=== PATIENT | female | born 1975 | race Asian ===

== ENCOUNTER 2016-03-16 19:22 | Emergency (ER) | payer OTHER ==
[2016-03-16 19:42] VITALS: BP 122/84; PULSE 103; RESP 18; TEMP 98.4; O2SAT 95
[2016-03-16] MEDS ORDERED: IBUPROFEN 800 MG TAB PO ONE (20:23)
[2016-03-16] MEDS ORDERED: ACETAMINOPHEN 500 MG TAB PO ONE (20:23)
--- NOTE | 2016-03-16 20:27 | UCPHY ---
H & P Patient Type: Established Chief Complaint Nursing Narrative: dry cough for 3 weeks, bodyaches, headache Time Seen by Provider: 03/16/16 20:17 HPI/ROS: CHIEF COMPLAINT: Cough, shortness of breath HISTORY OF PRESENT ILLNESS: The patient is a 40-year-old female who comes to the Urgent Care complaining of a cough mild shortness of breath. She states that she has had the symptoms for 3 weeks. She has had chills but no fever. She did get a flu shot this year. Mild sore throat but states that does not bother her that much. Mild runny nose. Mild ear pressure, no headache, neck pain, no chest pain. REVIEW OF SYSTEMS: Constitutional: See HPI EENTM: See HPI Respiratory: denies: cough, shortness of breath Cardiac: denies: chest pain, irregular heart rate, lightheadedness, palpitations Gastrointestinal/Abdominal: denies: abdominal pain, diarrhea, nausea, vomiting, blood streaked stools Genitourinary: denies: dysuria, frequency, hematuria, pain Musculoskeletal: denies: joint pain, muscle pain Skin: denies: lesions, rash, jaundice, bruising Neurological: denies: headache, numbness, paresthesia, tingling, dizziness, weakness Hematologic/Lymphatic: denies: blood clots, easy bleeding, easy bruising Immunologic/allergic: denies: HIV/AIDS, transplant EXAM: GENERAL: Well-appearing, well-nourished and in no acute distress. HEAD: Atraumatic, normocephalic. EYES: Pupils equal round and reactive to light, extraocular movements intact, sclera anicteric, conjunctiva are normal. ENT: Fluid behind tympanic membranes, no erythema, sinus congestion, dry cough NECK: Normal range of motion, supple without lymphadenopathy or JVD. LUNGS: Breath sounds clear to auscultation bilaterally and equal. No wheezes rales or rhonchi. HEART: Regular rate and rhythm without murmurs, rubs or gallops. ABDOMEN: Soft, nontender, normoactive bowel sounds. No guarding, no rebound. No masses appreciated. BACK: No CVA tenderness, no spinal tenderness, step-offs or deformities EXTREMITIES: Normal range of motion, no pitting or edema. No clubbing or cyanosis. NEUROLOGICAL: Cranial nerves II through XII grossly intact. Normal speech, normal gait. 5/5 strength, normal movement in all extremities, normal sensation PSYCH: Normal mood, normal affect. SKIN: Warm, dry, normal turgor, no visible rashes or lesions. Source: Patient Exam Limitations: No limitations - Personal History LMP (Females 10-55): 8-14 Days Ago Current Tetanus Diphtheria and Acellular Pertussis (TDAP): Unsure - Medical/Surgical History Hx Asthma: No Hx Chronic Respiratory Disease: No Hx Diabetes: No Hx Cardiac Disease: No Hx Renal Disease: No Hx Cirrhosis: No Hx Alcoholism: No Hx HIV/AIDS: No Hx Splenectomy or Spleen Trauma: No Other PMH: Cervical fusion, bronchitis, pneumonia - Family History Significant Family History: Hypertension - Social History Smoking Status: Never smoked Alcohol Use: Sober Drug Use: None Constitutional: Initial Vital Signs Temperature (C) 36.9 C 03/16/16 19:38 Heart Rate 103 H 03/16/16 19:38 Respiratory Rate 18 03/16/16 19:38 Blood Pressure 122/84 H 03/16/16 19:38 O2 Sat (%) 95 03/16/16 19:38 O2 Delivery Mode Room Air Allergies/Adverse Reactions: aspirin [Aspirin] Allergy (Severe, Verified 03/16/16 19:38) Anaphylaxis Home Medications: Medication Instructions Recorded AZITHROMYCIN [Z-PACK] 250 mg PO DAILY #4 tab 03/16/16 Promethazine HCl/Codeine 5 ml PO Q4-6PRN PRN #90 ml 03/16/16 [Prometh-Codein 6.25-10 mg/5 ml] Medical Decision Making - Diagnostics Imaging: X-ray: chest x-ray was obtained. I viewed the images myself on the PACS system. My interpretation of the images is: Bronchitis. The radiologist interpretation is pending. ED Course/Re-evaluation: The patient's flu swab is negative. Her x-ray is consistent with bronchitis. She has had the symptoms for several weeks. I will start her on azithromycin. She is agreeable to this plan. She declines further workup or testing. She declines inhalers. I will give her cough syrup to use as needed. Warned her that is not I wonder drug. She understands this plan. Additional verbal Discharge instructions given Differential Diagnosis: Partial list of the Differential diagnosis considered include but were not limited to; bronchitis, influenza, strep throat, upper respiratory tract infection and although unlikely based on the history and physical exam, I also considered pneumonia, PE, acute coronary disease. I discussed these differential diagnoses and the plan with the patient as well as the usual and expected course. The patient understands that the diagnosis is provisional and that in medicine we are not always correct and that further workup is often warranted. Usual and customary warnings were given. All of the patient's questions were answered. The patient was instructed to return to the emergency department should the symptoms at all worsen or return, otherwise to followup with the physician as we discussed. - Data Points Laboratory Results: 03/16/16 20:25 Influenza Typ A,B (DFA) NEGATIVE FOR FLU (NEGATIVE) Medications Given: Discontinued Medications Acetaminophen (Tylenol) 1,000 mg PO EDNOW ONE Stop: 03/16/16 20:24 Last Admin: 03/16/16 21:20 Dose: 1,000 mg Azithromycin (Zithromax) 500 mg PO EDNOW ONE PRN Reason: Protocol Stop: 03/16/16 20:52 Last Admin: 03/16/16 21:20 Dose: 500 mg Ibuprofen (Motrin) 800 mg PO EDNOW ONE Stop: 03/16/16 20:24 Last Admin: 03/16/16 21:20 Dose: 800 mg Departure - Departure Disposition: Home, Routine, Self-Care Clinical Impression: Bronchitis Condition: Fair Instructions: Acute Bronchitis (ED) Referrals: [place] STATE,. [Primary Care Provider] - As per Instructions Lucas Portillo, [Medical Doctor] - As per Instructions Prescriptions: Promethazine HCl/Codeine [Prometh-Codein 6.25-10 mg/5 ml] 5 ml PO Q4-6PRN PRN # 90 ml PRN Reason: Cough, Moderate AZITHROMYCIN [Z-PACK] 250 mg PO DAILY #4 tab - PQRS PQRS Measurement: Not applicable
[2016-03-16] MEDS ORDERED: AZITHROMYCIN 250 MG TAB PO ONE (20:51)
[2016-03-16] MEDS ORDERED: IBUPROFEN 600 MG TAB PO ONE (21:21)
--- NOTE | 2016-03-17 17:15 | DX ---
PA and Lateral Chest Clinical Indications: Cough for 3 weeks. Findings: Compare 2013, 2010. The lungs are clear, and no masses are found. Bronchial markings appe ar thickened, bilaterally, suggesting possible bronchitis. Lungs are not hyperinflated. The heart and pulmonary vessels are normal. There are no pleural effusions and no pneumothorax. Locking plate an d opaque markers of fusion grafts are noted in the cervical spine. Impression: Negative for pneumonia.
== END 2016-03-16 21:29 | disposition home or self-care (01) ==
LOC: CED 19:22
DX: J40 Bronchitis, not specified as acute or chronic (principal); R51 Headache
CPT/HCPCS: 71020-PO; 87400-PO; 99214-PO; G0463-PO

== ENCOUNTER 2016-05-05 15:34 | Emergency (ER) | payer OTHER ==
[2016-05-05 15:42] VITALS: BP 139/77; PULSE 101; RESP 16; TEMP 98.1; O2SAT 100
[2016-05-05] MEDS ORDERED: DEXAMETHASONE VARIABLE DOSE IVP/PO ONE (16:04)
--- NOTE | 2016-05-05 16:07 | UCPHY ---
H & P Patient Type: Established Chief Complaint Nursing Narrative: C/o sore throat and nonproductive cough x 1 week. Denies fever. Time Seen by Provider: 05/05/16 15:56 HPI/ROS: CHIEF COMPLAINT: Sore throat HISTORY OF PRESENT ILLNESS: The patient is a 40-year-old female who comes to the Urgent Care complaining of a sore throat for the last week. She has not had a fever. She has had mild sinus congestion and dry cough. No shortness of breath, no chest pain, no GI symptoms, no symptoms she classifies her symptoms as moderate and negative. I saw her about a month ago for bronchitis and she successfully recovered with azithromycin. REVIEW OF SYSTEMS: Constitutional: denies: chills, fever, recent illness, recent injury EENTM: See HPI Respiratory: denies: cough, shortness of breath Cardiac: denies: chest pain, irregular heart rate, lightheadedness, palpitations Gastrointestinal/Abdominal: denies: abdominal pain, diarrhea, nausea, vomiting, blood streaked stools Genitourinary: denies: dysuria, frequency, hematuria, pain Musculoskeletal: denies: joint pain, muscle pain Skin: denies: lesions, rash, jaundice, bruising Neurological: denies: headache, numbness, paresthesia, tingling, dizziness, weakness Hematologic/Lymphatic: denies: blood clots, easy bleeding, easy bruising Immunologic/allergic: denies: HIV/AIDS, transplant EXAM: GENERAL: Well-appearing, well-nourished and in no acute distress. HEAD: Atraumatic, normocephalic. EYES: Pupils equal round and reactive to light, extraocular movements intact, sclera anicteric, conjunctiva are normal. ENT: TMs normal, nares patent, oropharynx erythematous without exudates. Moist mucous membranes. NECK: Normal range of motion, supple without lymphadenopathy or JVD. LUNGS: Breath sounds clear to auscultation bilaterally and equal. No wheezes rales or rhonchi. HEART: Regular rate and rhythm without murmurs, rubs or gallops. ABDOMEN: Soft, nontender, normoactive bowel sounds. No guarding, no rebound. No masses appreciated. BACK: No CVA tenderness, no spinal tenderness, step-offs or deformities EXTREMITIES: Normal range of motion, no pitting or edema. No clubbing or cyanosis. NEUROLOGICAL: Cranial nerves II through XII grossly intact. Normal speech, normal gait. 5/5 strength, normal movement in all extremities, normal sensation PSYCH: Normal mood, normal affect. SKIN: Warm, dry, normal turgor, no visible rashes or lesions. Source: Patient Exam Limitations: No limitations - Personal History LMP (Females 10-55): 15-21 Days Ago Current Tetanus/Diphtheria Vaccine: Unsure Current Tetanus Diphtheria and Acellular Pertussis (TDAP): Unsure - Medical/Surgical History Hx Asthma: No Hx Chronic Respiratory Disease: No Hx Diabetes: No Hx Cardiac Disease: No Hx Renal Disease: No Hx Cirrhosis: No Hx Alcoholism: No Hx HIV/AIDS: No Hx Splenectomy or Spleen Trauma: No Other PMH: Cervical fusion, bronchitis, pneumonia - Family History Significant Family History: No pertinent family hx - Social History Smoking Status: Never smoked Alcohol Use: None Drug Use: None Constitutional: Initial Vital Signs Temperature (C) 36.7 C 05/05/16 15:40 Heart Rate 101 H 05/05/16 15:40 Respiratory Rate 16 05/05/16 15:40 Blood Pressure 139/77 H 05/05/16 15:40 O2 Sat (%) 100 05/05/16 15:40 O2 Delivery Mode Room Air Allergies/Adverse Reactions: aspirin [Aspirin] Allergy (Severe, Verified 05/05/16 15:42) Anaphylaxis Home Medications: Medication Instructions Recorded NK [No Known Home Meds] 05/05/16 Medical Decision Making ED Course/Re-evaluation: Patient's rapid strep is negative. I will treat with a dose of Decadron. We discussed the possibility of different PCR interpretation. She is not ill appearing and afebrile. I will not initiate antibiotics at this time. Differential Diagnosis: Partial list of the Differential diagnosis considered include but were not limited to; pharyngitis, upper respiratory tract infection, bronchitis, and although unlikely based on the history and physical exam, I also considered pneumonia, otitis media, meningitis. I discussed these differential diagnoses and the plan with the patient as well as the usual and expected course. The patient understands that the diagnosis is provisional and that in medicine we are not always correct and that further workup is often warranted. Usual and customary warnings were given. All of the patient's questions were answered. The patient was instructed to return to the emergency department should the symptoms at all worsen or return, otherwise to followup with the physician as we discussed. - Data Points Laboratory Results: 05/05/16 05/05/16 Unknown 15:45 Group A Strep Screen NEGATIVE (NEGATIVE) Group A Strep DNA Pending Medications Given: Discontinued Medications Dexamethasone Sodium Phosphate (Decadron) 10 mg IVP/PO EDNOW ONE Stop: 05/05/16 16:05 Last Admin: 05/05/16 16:14 Dose: 10 mg Departure - Departure Disposition: Home, Routine, Self-Care Clinical Impression: Pharyngitis Qualifiers: Pharyngitis/tonsillitis etiology: unspecified etiology Qualified Code(s): J02.9 - Acute pharyngitis, unspecified Condition: Fair Instructions: Pharyngitis (ED) Referrals: Serafin Rodriguez MD [Medical Doctor] - As per Instructions - PQRS PQRS Measurement: Not applicable
[2016-05-05] MEDS ORDERED: DEXAMETHASONE 10 MG/ML VIAL ONE (16:11)
== END 2016-05-05 16:17 | disposition home or self-care (01) ==
LOC: CED 15:34
DX: J02.9 Acute pharyngitis, unspecified (principal); R05 Cough; Z98.1 Arthrodesis status
CPT/HCPCS: 87880-PO; G0463-PO

== ENCOUNTER 2016-05-23 15:22 | Inpatient (IN) | payer OTHER ==
[2016-05-23] MEDS ORDERED: NS 1,000 ML IV ONE ×4 (15:48→20:23)
[2016-05-23] MEDS ORDERED: ACETAMINOPHEN 325 MG TAB PO ONE (15:48)
--- NOTE | 2016-05-23 15:49 | UCPHY ---
H & P Patient Type: Established HPI/ROS: HPI CHIEF COMPLAINT: Fever, tachycardia, hypotension, cough, generalized illness, muscle aches, headache HISTORY OF PRESENT ILLNESS: This patient 40-year-old female significant past medical history for hyperlipidemia, pre diabetes, cervical fusion, presents to urgent care by private vehicle with not feeling well. She states that for the past 24 hours she has had a cough nonproductive, fever, fast heart rate, muscle aches, headache, generalized weakness, nausea. No vomiting no diarrhea no chest pain. She does endorse a cough. It is noted upon arrival to the urgent care heart rate is 160 her blood pressures 90s, she is febrile to 103. She appears to be septic. and friend at bedside. Past Medical History: Hyperlipidemia, pre-diabetes, pneumonia, recurrent bronchitis. Past Surgical History: Cervical fusion Social History: Denies use of drugs alcohol tobacco products Family History: noncontributory ROS REVIEW OF SYSTEMS: A comprehensive 10 point review of systems is otherwise negative aside from elements mentioned in the history of present illness. Exam Constitutional appears ill, triage nursing summary reviewed, vital signs reviewed, awake/alert. Vital signs noted: Tachycardia, blood pressure 90s, febrile to 103 Eyes normal conjunctivae and sclera, EOMI, PERRLA. HENT normal inspection, atraumatic, moist mucus membranes, no epistaxis, neck supple/ no meningismus, no raccoon eyes. Respiratory clear to auscultation bilaterally, normal breath sounds, no respiratory distress, no wheezing. Cardiovascular tachycardia, regular,no murmur, no edema, distal pulses normal. Gastrointestinal soft, non-tender, no rebound, no guarding, normal bowel sounds, no distension, no pulsatile mass. Genitourinary no CVA tenderness. Musculoskeletal no midline vertebral tenderness, full range of motion, no calf swelling, no tenderness of extremities, no meningismus, good pulses, neurovascularly intact. Skin pink, warm, & dry, no rash, skin atraumatic. Neurologic awake, alert and oriented x 3, AAOx3, moves all 4 extremities equally, motor intact, sensory intact, CN II-XII intact, normal cerebellar, normal vision, normal speech. Psychiatric normal mood/affect. Heme/Lymph/Immune no lymphadenopathy. Differential Diagnosis: Includes but is not limited to in a particular order, sepsis, severe sepsis, bacteremia, septic shock, pneumonia, dehydration, influenza, meningitis Medical Decision Making: Plan for this patient should be resuscitated aggressively, she had 2 large-bore IVs established receive IV fluid bolus 2 L up front, blood cultures, lactic acid, strep, bacterial pneumonia, patient had a chest x-ray, blood work, lactic acid, coags urinalysis.Tachycardic to the 160 she will need EKG. Re-evaluation: Critical Care: Total Critical Care Time Spent Managing this Patient: 60 Minutes. This time was spent Exclusively with this patient. This Care was exclusive of procedures. The Organ System/life at risk was hemodynamically, sepsis, tachycardia, fever to 103 This Patient was in Critical Condition because bacteremia, sepsis, tachycardia , fever to 103 dehydration, EKG interpretation by me on record in [employer] system. Impression time of EKG 1625, this is sinus tachycardia rate of 145. CT scan of the head without IV contrast The results of the study are negative for acute intracranial abnormality The study was read by Dr. Musa I viewed the images myself on the PACS system. CT scan of the chest without IV contrast The results of the study are right upper lobe pneumonia is also right lower lobe pulmonary calcifications that will need follow-up The study was read by Dr. Musa I viewed the images myself on the PACS system. Final diagnosis severe sepsis, sepsis with tachycardia, high fever, dehydration , right upper lobe pneumonia 1821: spoke with the hospitalist service Dr. Mehta who agrees to admit this patient. At this time this patient is hemodynamically stable, fever has resolved heart rate is coming down, CT scan shows pneumonia. IV Rocephin IV azithromycin has been ordered for this. Lactic acid is not elevated. She has received 4 L of fluid, blood cultures, trending lactates. She is agreeable for transfer and admission to the hospital. Source: Patient - Medical/Surgical History Hx Asthma: No Hx Chronic Respiratory Disease: No Hx Diabetes: No Hx Cardiac Disease: No Hx Renal Disease: No Hx Cirrhosis: No Hx Alcoholism: No Hx HIV/AIDS: No Hx Splenectomy or Spleen Trauma: No Other PMH: Cervical fusion, bronchitis, pneumonia - Family History Significant Family History: No pertinent family hx - Social History Smoking Status: Never smoked Constitutional: Initial Vital Signs Temperature (C) 39.9 C H 05/23/16 15:49 Heart Rate 151 H 05/23/16 15:49 Respiratory Rate 22 H 05/23/16 15:49 Blood Pressure 103/59 L 05/23/16 15:49 O2 Sat (%) 92 05/23/16 15:49 O2 Delivery Mode Room Air Allergies/Adverse Reactions: aspirin [Aspirin] Allergy (Severe, Verified 05/05/16 15:42) Anaphylaxis Home Medications: Medication Instructions Recorded NK [No Known Home Meds] 05/05/16 Medical Decision Making - Data Points Laboratory Results: Laboratory Results 05/23/16 16:11 05/23/16 16:11 05/23/16 05/23/16 05/23/16 Unknown 16:11 16:11 WBC RBC Hgb Hct MCV MCH MCHC RDW Plt Count MPV Neut % (Auto) Lymph % (Auto) [place] % (Auto) Eos % (Auto) Baso % (Auto) Nucleat RBC Rel Count Absolute Neuts (auto) Absolute Lymphs (auto) Absolute Monos (auto) Absolute Eos (auto) Absolute Basos (auto) Absolute Nucleated RBC Immature Gran % Immature Gran # PT INR APTT VBG Lactic Acid 2.1 mmol/L mmol/L (0.7-2.1) Sodium Potassium Chloride Carbon Dioxide Anion Gap BUN Creatinine Estimated GFR Glucose Calcium Total Bilirubin Troponin I < 0.012 ng/mL ng/mL (0-0.034) Urine Color Urine Appearance Urine pH Ur Specific [place] Urine Protein Urine Ketones Urine Blood Urine Nitrate Urine Bilirubin Urine Urobilinogen Ur Leukocyte Esterase Urine RBC Urine WBC Ur Epithelial Cells Urine Bacteria Urine Mucus Urine Glucose Urine Test Influenza Typ A,B (DFA) Group A Strep Screen Group A Strep DNA Pending 05/23/16 05/23/16 05/23/16 16:11 16:11 16:11 WBC RBC Hgb Hct MCV MCH MCHC RDW Plt Count MPV Neut % (Auto) Lymph % (Auto) [place] % (Auto) Eos % (Auto) Baso % (Auto) Nucleat RBC Rel Count Absolute Neuts (auto) Absolute Lymphs (auto) Absolute Monos (auto) Absolute Eos (auto) Absolute Basos (auto) Absolute Nucleated RBC Immature Gran % Immature Gran # PT INR APTT VBG Lactic Acid Sodium Potassium Chloride Carbon Dioxide Anion Gap BUN Creatinine Estimated GFR Glucose Calcium Total Bilirubin Troponin I Urine Color YELLOW Urine Appearance HAZY Urine pH 8.0 H (5.0-7.5) Ur Specific [place] 1.020 (1.002-1.030) Urine Protein NEGATIVE (NEGATIVE) Urine Ketones NEGATIVE (NEGATIVE) Urine Blood 1+ H (NEGATIVE) Urine Nitrate NEGATIVE (NEGATIVE) Urine Bilirubin NEGATIVE (NEGATIVE) Urine Urobilinogen 0.2 EU EU (0.2-1.0) Ur Leukocyte Esterase NEGATIVE (NEGATIVE) Urine RBC 1-3 /hpf /hpf (0-3) Urine WBC 0-1 /hpf /hpf (0-3) Ur Epithelial Cells 2+ /lpf H /lpf (NONE-1+) Urine Bacteria TRACE /hpf H /hpf (NONE SEEN) Urine Mucus 2+ /lpf H /lpf (NONE-1+) Urine Glucose NEGATIVE (NEGATIVE) Urine Test Influenza Typ A,B (DFA) NEGATIVE FOR FLU (NEGATIVE) Group A Strep Screen NEGATIVE (NEGATIVE) Group A Strep DNA 05/23/16 05/23/16 05/23/16 16:11 16:11 16:11 WBC 7.91 10^3/uL 10^3/uL (3.80-9.50) RBC 4.93 10^6/uL 10^6/uL (4.18-5.33) Hgb 13.5 g/dL g/dL (12.6-16.3) Hct 40.3 % % (38.0-47.0) MCV 81.7 fL fL (81.5-99.8) MCH 27.4 pg L pg (27.9-34.1) MCHC 33.5 g/dL g/dL (32.4-36.7) RDW 13.1 % % (11.5-15.2) Plt Count 162 10^3/uL 10^3/uL (150-400) MPV 10.7 fL fL (8.7-11.7) Neut % (Auto) 85.0 % H % (39.3-74.2) Lymph % (Auto) 5.7 % L % (15.0-45.0) [place] % (Auto) 7.7 % % (4.5-13.0) Eos % (Auto) 0.6 % % (0.6-7.6) Baso % (Auto) 0.1 % L % (0.3-1.7) Nucleat RBC Rel Count 0.0 % % (0.0-0.2) Absolute Neuts (auto) 6.72 10^3/uL H 10^3/uL (1.70-6.50) Absolute Lymphs (auto) 0.45 10^3/uL L 10^3/uL (1.00-3.00) Absolute Monos (auto) 0.61 10^3/uL 10^3/uL (0.30-0.80) Absolute Eos (auto) 0.05 10^3/uL 10^3/uL (0.03-0.40) Absolute Basos (auto) 0.01 10^3/uL L 10^3/uL (0.02-0.10) Absolute Nucleated RBC 0.00 10^3/uL 10^3/uL (0-0.01) Immature Gran % 0.9 % % (0.0-1.1) Immature Gran # 0.07 10^3/uL 10^3/uL (0.00-0.10) PT 13.4 SEC SEC (12.0-15.0) INR 1.05 (0.83-1.16) APTT 26.9 SEC SEC (23.0-38.0) VBG Lactic Acid Sodium 136 mEq/L mEq/L (134-144) Potassium 3.6 mEq/L mEq/L (3.5-5.2) Chloride 106 mEq/L mEq/L (97-110) Carbon Dioxide 18 mEq/l L mEq/l (22-31) Anion Gap 12 mEq/L mEq/L (8-16) BUN 11 mg/dL mg/dL (7-23) Creatinine 0.6 mg/dL mg/dL (0.6-1.0) Estimated GFR > 60 Glucose 169 mg/dL H mg/dL (70-100) Calcium 8.4 mg/dL L mg/dL (8.5-10.4) Total Bilirubin 0.6 mg/dL mg/dL (0.1-1.4) Troponin I Urine Color Urine Appearance Urine pH Ur Specific [place] Urine Protein Urine Ketones Urine Blood Urine Nitrate Urine Bilirubin Urine Urobilinogen Ur Leukocyte Esterase Urine RBC Urine WBC Ur Epithelial Cells Urine Bacteria Urine Mucus Urine Glucose Urine Test Influenza Typ A,B (DFA) Group A Strep Screen Group A Strep DNA 05/23/16 05/23/16 16:11 15:53 WBC RBC Hgb Hct MCV MCH MCHC RDW Plt Count MPV Neut % (Auto) Lymph % (Auto) [place] % (Auto) Eos % (Auto) Baso % (Auto) Nucleat RBC Rel Count Absolute Neuts (auto) Absolute Lymphs (auto) Absolute Monos (auto) Absolute Eos (auto) Absolute Basos (auto) Absolute Nucleated RBC Immature Gran % Immature Gran # PT INR APTT VBG Lactic Acid Pending Sodium Potassium Chloride Carbon Dioxide Anion Gap BUN Creatinine Estimated GFR Glucose Calcium Total Bilirubin Troponin I Urine Color Urine Appearance Urine pH Ur Specific [place] Urine Protein Urine Ketones Urine Blood Urine Nitrate Urine Bilirubin Urine Urobilinogen Ur Leukocyte Esterase Urine RBC Urine WBC Ur Epithelial Cells Urine Bacteria Urine Mucus Urine Glucose Urine Test NEGATIVE Influenza Typ A,B (DFA) Group A Strep Screen Group A Strep DNA Medications Given: Discontinued Medications Acetaminophen (Tylenol) 1,000 mg PO EDNOW ONE Stop: 05/23/16 15:49 Last Admin: 05/23/16 15:59 Dose: 1,000 mg Sodium Chloride (Ns) 1,000 mls @ 0 mls/hr IV ONCE ONE PRN Reason: Wide Open Stop: 05/23/16 15:49 Last Admin: 05/23/16 16:21 Dose: 1,000 mls Sodium Chloride (Ns) 1,000 mls @ 0 mls/hr IV ONCE ONE PRN Reason: Wide Open Stop: 05/23/16 16:23 Last Admin: 05/23/16 16:26 Dose: 1,000 mls Ibuprofen (Motrin) 800 mg PO EDNOW ONE Stop: 05/23/16 15:56 Last Admin: 05/23/16 16:26 Dose: 800 mg Departure - Departure Disposition: [facility] Clinical Impression: Tachycardia Fever Qualifiers: Fever type: unspecified Qualified Code(s): R50.9 - Fever, unspecified Pneumonia Qualifiers: Pneumonia type: due to unspecified organism Laterality: right Lung location: upper lobe of lung Qualified Code(s): J18.1 - Lobar pneumonia, unspecified organism Condition: Critical Referrals: NONE *PRIMARY CARE P,. [Primary Care Provider] - As per Instructions - PQRS PQRS Measurement: n/a
[2016-05-23] MEDS ORDERED: IBUPROFEN 800 MG TAB PO ONE (15:55)
[2016-05-23] MEDS ORDERED: IBUPROFEN 200 MG TAB PO ONE (16:23)
[2016-05-23] MEDS ORDERED: IBUPROFEN 600 MG TAB PO ONE (16:23)
--- NOTE | 2016-05-23 16:27 | CPEKG ---
Heart Rate: 145 RR Interval: 414 P-R Interval: 128 QRSD Interval: 76 QT Interval: 276 QTC Interval: 429 P [place]: 58 QRS [place]: 55 T Wave [place]: -59 EKG Severity - OTHERWISE NORMAL ECG - EKG Impression: SINUS TACHYCARDIA EKG Impression: SUBTLE INFERIOR/INFEROLATERAL ST DEPRESSION NOTED Electronically Signed By: Ricardo Aragon 24-May-2016 12:00:08
[2016-05-23 16:29] LABS: % IMMATURE GRANULYOCYTES 0.9 % (0.0-1.1); ABSOLUTE IMMATURE GRANULOCYTES 0.07 10^3/uL (0.00-0.10); ADD DIFF? NO; ADD MORPH? NO; ADD SCAN? NO; ATYPICAL LYMPHOCYTE FLAG 0 (0-99); FRAGMENT RBC FLAG 0 (0-99); HEMATOCRIT 40.3 % (38.0-47.0); HEMOGLOBIN 13.5 g/dL (12.6-16.3); LEFT SHIFT FLG 10 (0-99); LIPEMIA HEMOLYSIS FLAG 80 (0-99); MEAN CELL HEMOGLOBIN 27.4 pg (27.9-34.1); MEAN CELL HEMOGLOBIN CONCENTR. 33.5 g/dL (32.4-36.7); MEAN CELL VOLUME 81.7 fL (81.5-99.8); MEAN PLATELET VOLUME 10.7 fL (8.7-11.7); PLATELET CLUMPS FLAG 0 (0-99); PLATELET COUNT 162 10^3/uL (150-400); RED BLOOD CELL COUNT 4.93 10^6/uL (4.18-5.33); RED CELL DISTRIBUTION WIDTH 13.1 % (11.5-15.2)
[2016-05-23 16:30] LABS: COLOR YELLOW; LEUKOCYTE ESTERASE,URINE NEGATIVE (NEGATIVE); NITRITE,URINE NEGATIVE (NEGATIVE)
[2016-05-23 16:37] LABS: INR 1.05 (0.83-1.16); PROTIME(PATIENT) 13.4 SEC (12.0-15.0)
[2016-05-23 16:38] LABS: APTT 26.9 SEC (23.0-38.0)
[2016-05-23 16:39] LABS: ANION GAP 12 mEq/L (8-16); BILIRUBIN,TOTAL 0.6 mg/dL (0.1-1.4); CALCIUM 8.4 mg/dL (8.5-10.4); CARBON DIOXIDE 18 mEq/l (22-31); CHLORIDE 106 mEq/L (97-110); CREATININE 0.6 mg/dL (0.6-1.0); GLOMERULAR FILTRATION RATE > 60; GLUCOSE 169 mg/dL (70-100); POTASSIUM 3.6 mEq/L (3.5-5.2); SODIUM 136 mEq/L (134-144)
[2016-05-23 16:55] LABS: BACTERIA TRACE /hpf (NONE SEEN); MUCUS 2+ /lpf (NONE-1+); WBC,URINE 0-1 /hpf (0-3)
[2016-05-23] MEDS ORDERED: AZITHROMYCIN IV 500 MG in D5W 250 ML IV ONE (18:14)
[2016-05-23] MEDS ORDERED: cefTRIAXone 2 GM in D5W 50 ML IV ONE (18:14)
[2016-05-23] MEDS ORDERED: cefTRIAXone 1 GM VIAL ONE (18:26)
[2016-05-23] MEDS ORDERED: ONDANSETRON 4 MG/2 ML VIAL IVP PRN (20:55)
[2016-05-23] MEDS ORDERED: ALBUTEROL 3 ML DEYVIAL IH PRN (20:55)
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
[2016-05-23] MEDS: NS W/ 20 KCl/L 1,000 ML IV SCH (21:42)
[2016-05-23] MEDS ORDERED: guaiFENesin/CODEINE PHOS 10 ML UDCUP PO PRN (21:52)
[2016-05-23] MEDS ORDERED: BENZONATATE 100 MG CAP PO PRN (21:52)
[2016-05-23] MEDS: guaiFENesin 600 MG TAB.ER PO SCH (22:08)
[2016-05-24] MEDS: ONDANSETRON DISINTEGRATING 4 MG TAB PO PRN ×2 (02:46→15:59)
[2016-05-24] MEDS: NS W/ 20 KCl/L 1,000 ML IV SCH ×3 (04:19→20:57)
[2016-05-24] MEDS: ACETAMINOPHEN 325 MG TAB PO PRN ×2 (04:24→16:32)
[2016-05-24 06:04] LABS: % IMMATURE GRANULYOCYTES 0.8 % (0.0-1.1); ABSOLUTE IMMATURE GRANULOCYTES 0.04 10^3/uL (0.00-0.10); ADD DIFF? NO; ADD MORPH? NO; ADD SCAN? NO; ATYPICAL LYMPHOCYTE FLAG 0 (0-99); FRAGMENT RBC FLAG 0 (0-99); HEMATOCRIT 32.3 % (38.0-47.0); HEMOGLOBIN 10.3 g/dL (12.6-16.3); LEFT SHIFT FLG 30 (0-99); LIPEMIA HEMOLYSIS FLAG 80 (0-99); MEAN CELL HEMOGLOBIN 27.5 pg (27.9-34.1); MEAN CELL HEMOGLOBIN CONCENTR. 31.9 g/dL (32.4-36.7); MEAN CELL VOLUME 86.1 fL (81.5-99.8); MEAN PLATELET VOLUME 10.8 fL (8.7-11.7); PLATELET CLUMPS FLAG 20 (0-99); PLATELET COUNT 117 10^3/uL (150-400); RED BLOOD CELL COUNT 3.75 10^6/uL (4.18-5.33); RED CELL DISTRIBUTION WIDTH 13.5 % (11.5-15.2)
[2016-05-24 06:10] LABS: ALANINE AMINOTRANSFERASE 45 IU/L (9-52); ALBUMIN 2.7 g/dL (3.5-5.0); ALKALINE PHOSPHATASE 47 IU/L (38-126); ANION GAP 5 mEq/L (8-16); ASPARTATE AMINOTRANSFERASE 39 IU/L (14-46); BILIRUBIN,TOTAL 0.4 mg/dL (0.1-1.4); CALCIUM 6.8 mg/dL (8.5-10.4); CARBON DIOXIDE 20 mEq/l (22-31); CHLORIDE 117 mEq/L (97-110); CREATININE 0.5 mg/dL (0.6-1.0); GLOMERULAR FILTRATION RATE > 60; GLUCOSE 118 mg/dL (70-100); MAGNESIUM 1.8 mg/dL (1.6-2.3); POTASSIUM 3.7 mEq/L (3.5-5.2); SODIUM 142 mEq/L (134-144); TOTAL PROTEIN 4.8 g/dL (6.3-8.2)
[2016-05-24] MEDS: IBUPROFEN 600 MG TAB PO PRN ×2 (07:04→15:20)
[2016-05-24] MEDS ORDERED: Herbals/Supplements -Info Only PO SCH (09:00)
[2016-05-24] MEDS ORDERED: CHOLECALCIFEROL VIT D3 1,000 UNITS TAB PO SCH (09:00)
[2016-05-24] MEDS ORDERED: cefTRIAXone 1 GM in D5W 50 ML IV SCH (09:00)
[2016-05-24] MEDS: AZITHROMYCIN IV 500 MG in D5W 250 ML IV SCH (09:30)
[2016-05-24] MEDS: guaiFENesin 600 MG TAB.ER PO SCH ×2 (10:52→20:27)
[2016-05-24] MEDS: MAGNESIUM OXIDE 400 MG TAB PO SCH (10:52)
[2016-05-24] MEDS: CHOLECALCIFEROL VIT D3 2,000 UNITS TAB/CAP PO SCH (10:52)
[2016-05-24 10:55] LABS: RESPPCR RESULT SEE COMMENTS
--- NOTE | 2016-05-24 16:05 | HOSPPROG ---
Hospitalist Progress Note Assessment/Plan: # Acute influenza A - confirmed by a respiratory viral panel- pt with fever early this morning 39.4- remains lethargic CT chest( personally reviewed and interpreted) shows early upper lobe infiltrate - starting Tamiflu now - continue antibiotics until blood cultures negative times 24 hours # sepsis secondary to pneumonia- patient remains tachycardic and febrile- white count normal at 7 on admission oxygen saturations 96% on room air - continue IV fluids - empiric antibiotics - starting Tamiflu now # prophylaxis Lovenox # diet as tolerated # disposition greater than 2 midnights as the patient remains ill requiring acute Care support I have discussed the case with the RN- we will continue IV fluids as the patient's p.o. intake is at an adequate Subjective: continues to feel weak Objective: Vital Signs Temp Pulse Resp BP Pulse Ox 36.9 C 90 16 97/64 L 98 05/24/16 12:00 05/24/16 12:00 05/24/16 12:00 05/24/16 12:00 05/24/16 12:00 Laboratory Results 05/24/16 05:41 05/24/16 05:41 05/23/16 05/24/16 05/25/16 05:59 05:59 05:59 Intake Total 5150 Output Total 1250 Balance 3900 PT 13.4 SEC (12.0-15.0) 05/23/16 16:11 INR 1.05 (0.83-1.16) 05/23/16 16:11 - Physical Exam Constitutional: appears nourished Eyes: anicteric sclera Ears, Nose, Mouth, Throat: dry mucous membranes Cardiovascular: regular rate and rhythym, tachycardia Respiratory: no respiratory distress, No expiratory wheeze Gastrointestinal: normoactive bowel sounds, soft, non-tender abdomen Genitourinary: no bladder fullness Skin: warm, normal color Musculoskeletal: No asymmetric calves Neurologic: AAOx3 Psychiatric: interacting appropriately, not anxious Lymph, Heme, Immunologic: no cervical LAD ICD10 Worksheet Patient Problems: Problems Problem Status Onset Fever Acute Pneumonia Acute Tachycardia Acute Arthrodesis status Acute Cervical radiculitis Acute
[2016-05-24] MEDS: OSELTAMIVIR PHOSPHATE 75 MG CAP PO SCH (16:32)
[2016-05-24] MEDS ORDERED: OXYCODONE/APAP 5/325 TAB PO PRN (17:06)
[2016-05-24] MEDS ORDERED: oxyCODONE IR 5 MG TAB PO PRN (17:50)
[2016-05-24] MEDS ORDERED: OSELTAMIVIR PHOSPHATE 75 MG CAP PO SCH (18:00)
[2016-05-25] MEDS: IBUPROFEN 600 MG TAB PO PRN (02:50)
[2016-05-25] MEDS: NS W/ 20 KCl/L 1,000 ML IV SCH (04:54)
[2016-05-25 04:59] LABS: HEMATOCRIT 31.3 % (38.0-47.0); MEAN CELL HEMOGLOBIN 27.4 pg (27.9-34.1); MEAN CELL HEMOGLOBIN CONCENTR. 31.9 g/dL (32.4-36.7); MEAN CELL VOLUME 85.8 fL (81.5-99.8); RED BLOOD CELL COUNT 3.65 10^6/uL (4.18-5.33); RED CELL DISTRIBUTION WIDTH 13.8 % (11.5-15.2)
[2016-05-25 07:50] VITALS: BP 108/68; PULSE 93; RESP 18; TEMP 98.1; O2SAT 95
[2016-05-25] MEDS: OSELTAMIVIR PHOSPHATE 75 MG CAP PO SCH (08:54)
[2016-05-25] MEDS: CHOLECALCIFEROL VIT D3 2,000 UNITS TAB/CAP PO SCH (08:54)
[2016-05-25] MEDS: guaiFENesin 600 MG TAB.ER PO SCH (08:54)
[2016-05-25] MEDS: MAGNESIUM OXIDE 400 MG TAB PO SCH (08:55)
[2016-05-25] MEDS: AZITHROMYCIN IV 500 MG in D5W 250 ML IV SCH (09:45)
--- NOTE | 2016-05-25 16:28 | GDS ---
[f rep st] DISCHARGE SUMMARY DISCHARGE DIAGNOSES: Include: 1. Acute influenza A. 2. Sepsis secondary to influenza A. HISTORY OF PRESENT ILLNESS: This is a 40-year-old female who presented on 05/23/2016 with complaint s of fever, fatigue, and cough. For details of the patient's initial presentation, please see the h istory and physical dated 05/23/2016. CONSULTATIVE SERVICES: None. PROCEDURES: On 05/23/2016, she had a CT of the chest which showed localized early pneumonia in the right upper lobe. HOSPITAL COURSE: Acute influenza A. patient was initially treated for community-acquired pneumonia with IV antibiotics. When viral cultures returned, the patient was initiated on Tamiflu. The gildardo ent had a slow but steady response to IV fluid hydration and supportive care. On the day of disposi tion, her vital signs are normal. She is tolerating p.o. and will complete 8 doses of Tamiflu in [facility] outpatient setting. The patient is to follow with her primary care provider in the next 2-3 weeks after completion of her Tamiflu. PENDING STUDIES: At the time of this dictation include blood cultures which were drawn on 7, which are preliminary no growth to date. I spent greater than 30 minutes in the planning and coordination of this discharge. /[id number]/MODL
== END 2016-05-25 10:36 | disposition home or self-care (01) | DRG 871 ==
LOC: CED 15:22 → INTOOBSV 18:21 → CEDHOLD 18:21 → F3E 21:16 → OBSVTOIN 05-24 16:01
PROVIDERS: ADMIT Internal Medicine; ATTEND Internal Medicine
DX: A41.9 Sepsis, unspecified organism (principal); J10.00 Influenza due to other identified influenza virus with unspecified type of pneumonia; J18.9 Pneumonia, unspecified organism; E78.5 Hyperlipidemia, unspecified; R73.03 Prediabetes; Z98.1 Arthrodesis status
CPT/HCPCS: 70450-PO; 71010-PO; 71250-PO; 80048-PO; 81003-PO; 81015-PO; 81025-PO; 82247-PO; 83605-PO; 84484-PO; 85025-PO; 85610-PO; 85730-PO; 87400-PO; 87880-PO; 96360-PO; 96361-PO; 96365-PO; 96366-PO; 96367-PO; G0378; G0463-PO; J0456; J0696

== ENCOUNTER → 2017-03-06 | Outpatient (CLI) | payer OTHER | LOC: FIMAGING 14:41 → EDSTATUS 14:42 | PROVIDERS: ATTEND Physician Assistant | DX: Z98.1 Arthrodesis status (principal); M43.13 Spondylolisthesis, cervicothoracic region ==

== ENCOUNTER 2017-11-29 17:48 | Emergency (ER) | payer OTHER ==
[2017-11-29] MEDS ORDERED: NS 1,000 ML IV ONE (18:11)
--- NOTE | 2017-11-29 18:40 | EDPHY ---
H & P Stated Complaint: upper abd pain for 2 weeks, fever high 102f yesterday Time Seen by Provider: 11/29/17 17:55 HPI/ROS: This patient has upper abdominal pain for 2 weeks intermittently associated with some bloating"heartburn and vomiting and the beginning of the illness. She has also had loose stools typically 4-5 episodes a day of watery stools associated with her symptoms. Over the past 24 hr she developed associated fevers and chills up to 102 prompting her visit today. She had seen her primary care physician Dr. Refugio phan yesterday started on Protonix for concern of gastritis and/or ulcer. She called her primary care physician with onset of fevers and was instructed to come the emergency department for further evaluation. Patient has taken ibuprofen over the past 24 hr with transient relief of her fevers and took 400 mg prior to arrival. She describes mild epigastric pain 4/10 intensity that started along with a fevers over the past 24 hr. Her pain worsens with movement. No other exacerbating factors. ROS: Constitutional: As per HPI-fevers He HEENT: No URI symptoms Pulmonary: Patient describes some dyspnea with her symptoms today. She describes this as worsening with exertion but also present at baseline. No coughing. Cardiovascular: No lightheadedness. No chest pain. GI: As per HPI. No dark tarry stools. No bloody stools. She has nausea today but no vomiting. Although she has been having loose stools. She only had 1 slightly loose stool today. She reports tenesmus and early satiety : No dysuria frequency urgency. She has noticed hematuria. No vaginal discharge. Last menstrual period was normal timing on November 05. Integumentary: No skin rash. 10 point review of symptoms is performed and otherwise negative with exception of pertinent positives and negatives listed in HPI and ROS Source: Patient Exam Limitations: No limitations - Personal History LMP (Females 10-55): 15-21 Days Ago - Medical/Surgical History PMH: with 1 miscarriage No abdominal surgeries Hx Asthma: No Hx Chronic Respiratory Disease: No Hx Diabetes: No Hx Cardiac Disease: No Hx Renal Disease: No Hx Cirrhosis: No Hx Alcoholism: No Hx HIV/AIDS: No Hx Splenectomy or Spleen Trauma: No Other PMH: Cervical fusion, diabetes, knee surg - Family History Significant Family History: No pertinent family hx - Social History Smoking Status: Light smoker (Rare cigarettes) Alcohol Use: Rarely (She has a drink about once a month) Drug Use: None Additional Social History: She is a mother of a 5-year-old boy and 9-year-old girl No recent travel or suspect food ingestion. - Physical Exam Exam: General Appearance: Pleasant Iranian female Alert, no distress. Eyes: Pupils equal and round no pallor or injection. ENT, Mouth: Mucous membranes moist. Respiratory: There are no retractions, lungs are clear to auscultation. Cardiovascular: Mild tachycardia with no murmur gallop or rub Gastrointestinal: Normoactive to hypoactive soft, mild to moderate epigastric tenderness and no guarding or rebound. No organomegaly. Rectal exam: brown stool, heme neg. on guaiac, no tenderness or masses. Neurological: GCS 15. No focal deficits appreciated Back: No CVA tenderness Skin: Warm and dry, no rashes. Musculoskeletal: Neck is supple nontender. Extremities are symmetrical, full range of motion. Psychiatric: mood and affect normal DIFFERENTIAL DIAGNOSIS: After history and physical exam differential diagnosis was considered for infectious colitis, ulcer, biliary disease, hepatitis, doubt pneumonia, pancreatitis, UTI Constitutional: Initial Vital Signs Temperature (C) 37.2 C 11/29/17 18:00 Heart Rate 103 H 11/29/17 18:00 Respiratory Rate 18 11/29/17 18:00 Blood Pressure 112/72 11/29/17 18:00 O2 Sat (%) 96 11/29/17 18:00 O2 Delivery Mode Room Air Allergies/Adverse Reactions: aspirin [Aspirin] Allergy (Severe, Verified 11/29/17 17:59) Anaphylaxis oxycodone Allergy (Verified 11/29/17 17:59) Home Medications: Medication Instructions Recorded Herbals/Supplements -Info Only 1 ea PO DAILY 05/23/16 Metformin HCl 11/29/17 Ondansetron Odt [Zofran Odt] 4 - 8 mg PO Q4PRN PRN #4 tab 11/29/17 Protonix 11/29/17 Medical Decision Making - Diagnostics Imaging Results: Imaging Impressions Chest X-Ray 11/29/17 18:44 Impression: Clear lungs. No pneumoperitoneum. ED Course/Re-evaluation: IV normal saline bolus Zofran IV with relief of nausea Levsin sublingual without change in discomfort Maalox p.o. After review of labs Patient forgot to mention that yesterday she had influenza and pneumonia vaccines. She mention this during the ED course after workup initiated. Discussion: Patient with a 2 week history of loose stools and intermittent epigastric pain associated with some GERD symptoms who concerned primary care physician for potential gastritis or mild ulcer started on proton pump inhibitor yesterday and then with fever that developed today with sent into the emergency department for concern of potential more significant pathology such as biliary disease or hepatitis. However, she has a benign workup with normal LFTs tonight, normal metabolic panel, CBC with white count only minimally elevated 9.9, benign-appearing urinalysis and improvement with Zofran and Maalox. The cause of 2 weeks of loose stools is unclear but may be related to food intolerance or viral illness. She is unable to provide a stool sample while here for further testing or reports that her stool is nearly normalized today without further intervention. She is heme-negative from below tonight do not think as an active ulcer at this time. She may have ongoing gastritis and I suspected fevers attributable to post vaccine fever. I counseled regarding this. Chest x-ray was normal with no infiltrates or evidence of free air. Similarly her belly exam is benign with only mild tenderness. Will plan to send the patient out with Zofran, continue her proton pump inhibitor, Tylenol for antipyretic is this is less likely to cause gastric irritation NSAIDs. Patient will follow up with primary care physician for any ongoing symptoms understands need to return emergency department should she develop any worsening symptoms despite treatment plan - Data Points Laboratory Results: 11/29/17 11/29/17 11/29/17 18:55 18:40 18:35 POC Sodium 143 mEq/L mEq/L (135-145) POC Potassium 3.6 mEq/L mEq/L (3.3-5.0) POC Chloride 105.0 mEq/L mEq/L (97-110) POC Total CO2 24 mEq/L mEq/L (22-31) POC BUN 10 mg/dL mg/dL (7-23) POC Creatinine 0.7 mg/dL mg/dL (0.6-1.0) POC Glucose 94 mg/dL mg/dL (70-100) POC Calcium 9.5 mg/dL mg/dL (8.5-10.4) POC Total Bilirubin 0.9 mg/dL mg/dL (0.1-1.4) POC GGT 14 IU/L IU/L (5-65) POC AST 25 IU/L IU/L (14-46) POC ALT 19 IU/L IU/L (9-52) POC Alk Phosphatase 72 IU/L IU/L (38-126) POC Total Protein 7.4 g/dL g/dL (6.3-8.2) POC Albumin 4.2 g/dL g/dL (3.5-5.0) POC Amylase 39 IU/L IU/L (30-110) Lipase 206 IU/L IU/L (23-300) Urine dip reveals only microscopic hematuria. Otherwise normal CBC is normal exception of white count 9.9 with mild increase in neutrophils. H &H platelets normal Medications Given: Discontinued Medications Al Hydroxide/Mg Hydroxide (Maalox Susp) 30 ml PO EDNOW ONE Stop: 11/29/17 19:19 Last Admin: 11/29/17 19:25 Dose: 30 ml Hyoscyamine Sulfate (Levsin, Hyomax-Sl) 0.125 mg PO EDNOW ONE Stop: 11/29/17 18:46 Last Admin: 11/29/17 19:08 Dose: 0.125 mg Sodium Chloride (Ns) 1,000 mls @ 0 mls/hr IV EDNOW ONE; Wide Open PRN Reason: Protocol Stop: 11/29/17 18:12 Last Admin: 11/29/17 19:07 Dose: 1,000 mls Ondansetron HCl (Zofran) 4 mg IVP EDNOW ONE Stop: 11/29/17 18:46 Last Admin: 11/29/17 19:08 Dose: 4 mg Point of Care Test Results: CBC CBC Collection Date 11/29/17 CBC Collection Time 18:35 WBC 9.9 RBC 5.35 HGB 14.6 HCT 43.9 PLT 191 Neut # 7.0 Neut 71.1 LYMPH # 2.3 LYMPH 23.2 Other WBC # 0.6 Other WBC 5.7 MCV 82.1 Chemistry 11/29/17 11/29/17 18:55 18:40 POC Sodium 143 mEq/L mEq/L (135-145) POC Potassium 3.6 mEq/L mEq/L (3.3-5.0) POC Chloride 105.0 mEq/L mEq/L (97-110) POC Total CO2 24 mEq/L mEq/L (22-31) POC BUN 10 mg/dL mg/dL (7-23) POC Creatinine 0.7 mg/dL mg/dL (0.6-1.0) POC Glucose 94 mg/dL mg/dL (70-100) POC Calcium 9.5 mg/dL mg/dL (8.5-10.4) POC Total Bilirubin 0.9 mg/dL mg/dL (0.1-1.4) POC GGT 14 IU/L IU/L (5-65) POC AST 25 IU/L IU/L (14-46) POC ALT 19 IU/L IU/L (9-52) POC Alk Phosphatase 72 IU/L IU/L (38-126) POC Total Protein 7.4 g/dL g/dL (6.3-8.2) POC Albumin 4.2 g/dL g/dL (3.5-5.0) POC Amylase 39 IU/L IU/L (30-110) Liver Function Tests LFT Collection Date 11/29/17 LFT Collection Time 18:35 Occult Blood Occult Blood Collection Date 11/29/17 Occult Blood Collection Time 18:20 Occult Blood Result Negative/Negative Urine Collection Date 11/29/17 Collection Time 16:15 HCG Results Negative Urine Dip Collection Date 11/29/17 Collection Time 18:15 Specific [place] (1.002-1.030) 1.015 PH (5.0-7.5) 5.5 Leukocytes (Negative) Negative Nitrites (Negative) Negative Protein (Negative) Negative Glucose (Negative) Negative Ketones (Negative) Negative Urobilnogen (0.2-1.0 EU) 0.2 Bilirubin (Negative) Negative Blood (Negative) 2+ Departure - Departure Disposition: Home, Routine, Self-Care Clinical Impression: Upper abdominal pain, Post-vaccination fever Diarrhea Qualifiers: Diarrhea type: unspecified type Qualified Code(s): R19.7 - Diarrhea, unspecified Condition: Good Instructions: Gastritis (ED), Acute Diarrhea (ED) Additional Instructions: Diagnosis: 1. Gastritis 2. Post vaccination fever 3. Diarrhea Your liver function tests and pancreatic enzymes are all normal tonight. You had no blood in your stool. Your chest x-ray signs normal It is likely that you have gastritis causing upper belly pain, post vaccination fever and diarrhea from a virus or food intolerance. Plan: Continue your Protonix acid brittanie Avoid milk products to see if this helps with her loose stools. Imodium if needed for diarrhea Carbon diet until you feel improved-avoid spicy foods or alcohol. Use Tylenol instead of ibuprofen for fevers if needed. You can take 650-1000 mg per 4 hr of the Tylenol but do not exceed 3000 mg in 24 hr period. Zofran if needed for nausea. Follow up primary care physician for any ongoing symptoms Return emergency department for any significant worsening despite the treatment plan Referrals: IRENE ABRAMS [Primary Care Provider] - As per Instructions Prescriptions: Ondansetron Odt [Zofran Odt] 4 - 8 mg PO Q4PRN PRN #4 tab PRN Reason: Vomiting
[2017-11-29] MEDS ORDERED: ONDANSETRON 4 MG/2 ML VIAL IVP ONE (18:45)
[2017-11-29] MEDS ORDERED: HYOSCYAMINE SULFATE 0.125 MG TAB PO ONE (18:45)
[2017-11-29] MEDS ORDERED: MAG HYDROX/AL HYDROX/SIMETH 30 ML UDCUP PO ONE (19:18)
[2017-11-29 19:51] VITALS: BP 107/72
== END 2017-11-29 20:09 | disposition home or self-care (01) ==
LOC: CED 17:48
DX: R10.10 Upper abdominal pain, unspecified (principal); R50.83 Postvaccination fever; R19.7 Diarrhea, unspecified; E86.9 Volume depletion, unspecified; F17.200 Nicotine dependence, unspecified, uncomplicated
CPT/HCPCS: 71046-PO; 80048-PO; 80076-PO; 82150-PO; 96374; J2405

== ENCOUNTER → 2018-04-21 | Outpatient (CLI) | payer OTHER | LOC: FIMAGING 17:06 | PROVIDERS: ATTEND Internal Medicine Pulmonary Disease | DX: R05 Cough (principal) ==

== ENCOUNTER → 2018-07-02 | Outpatient (CLI) | payer OTHER | LOC: FIMAGING 11:58 | PROVIDERS: ATTEND Physician Assistant | DX: R10.11 Right upper quadrant pain (principal) | CPT/HCPCS: A9537 ==